=== PATIENT | female | born 1945 | race Asian ===

== ENCOUNTER 2024-04-14 01:57 | Inpatient (IN) | payer MEDICARE, OTHER ==
[~2024-04-14] VITALS: Ht 162.6 cm; Wt 63.5 kg
[2024-04-14] MEDS ORDERED: DOCU100T2 PO (02:21)
[2024-04-14] MEDS ORDERED: AMLO10TA59 PO (02:21)
[2024-04-14] MEDS ORDERED: MULT-1045 PO (02:21)
[2024-04-14] MEDS ORDERED: LEVO25TA9 PO (02:21)
[2024-04-14] MEDS ORDERED: OMEG-131 PO (02:21)
[2024-04-14] MEDS ORDERED: APIX5TAB PO (02:21)
[2024-04-14] MEDS ORDERED: ATOR20TA PO (02:21)
[2024-04-14] MEDS ORDERED: VALS80TA2 PO (02:21)
[2024-04-14] MEDS ORDERED: ACET325T53 PO (02:21)
[2024-04-14] MEDS ORDERED: GABA100C PO (02:21)
[2024-04-14] MEDS ORDERED: MIRT-73 PO (02:21)
[2024-04-14] MEDS ORDERED: DIVA250T4 PO (02:21)
[2024-04-14 03:06] LABS: BASOPHILS % (AUTO) 0.6 % (0.0-2.0); EOSINOPHILS % (AUTO) 0.2 % (0.0-7.0); HEMATOCRIT 36.3 % (31.2-41.9); HEMOGLOBIN 12.4 g/dL (10.9-14.3); LYMPHOCYTES % (AUTO) 15.3 % (20.5-51.5); MEAN CORPUSCULAR HEMOGLOBIN 30.7 uug (24.7-32.8); MEAN CORPUSCULAR HGB CONC 34 g/dL (32.3-35.6); MEAN CORPUSCULAR VOLUME 89.8 fL (75.5-95.3); MONOCYTES # (AUTO) 0.5 K/uL (0.1-1.30); MONOCYTES % (AUTO) 8.3 % (0.0-11.0); NEUTROPHILS # (AUTO) 4.7 K/uL (1.8-8.9); NEUTROPHILS % (AUTO) 75.6 % (38.5-71.5); PLATELET COUNT (AUTO) 152 K/uL (179-408); RED BLOOD CELL COUNT(AUTO) 4.04 MIL/uL (3.63-4.92); RED CELL DISTRIBUTION WIDTH 13.6 % (12.3-17.7); WHITE BLOOD COUNT (AUTO) 6.2 K/uL (3.8-11.8)
[2024-04-14 03:34] LABS: AMMONIA 19 umol/L (11-32)
[2024-04-14 03:37] LABS: DIFFERENTIAL COMMENT 1
[2024-04-14 03:41] LABS: *BILIRUBIN,URIN NEGATIVE (NEGATIVE); *BLOOD, URINE NEGATIVE (NEGATIVE); *CLARITY,URINE CLEAR (CLEAR); *COLOR,URINE YELLOW (YELLOW); *KETONES,URINE NEGATIVE (NEGATIVE); *PROTEIN,URINE NEGATIVE (NEGATIVE); *UROBILINOGEN,URINE 0.2 E.U./dl (NORMAL); LEUKOCYTE ESTERASE ,URINE NEGATIVE (NEGATIVE); NITRITE, URINE NEGATIVE (NEGATIVE); PH,URINE 5.5 (5.0-8.0); UGLUCOSE NEGATIVE (NEGATIVE)
[2024-04-14 04:57] LABS: THYROID STIMULATING HORMONE 1.238 mIU/mL (0.358-3.740)
[2024-04-14 04:58] LABS: ALANINE AMINOTRANSFERASE 200 U/L (14-59); ALBUMIN 3.2 g/dL (3.4-5.0); ALKALINE PHOSPHATASE 167 U/L (50-136); ASPARTATE AMINOTRANSFERASE 159 U/L (15-37); BILIRUBIN,DIRECT 0.1 mg/dL (0.0-0.2); BILIRUBIN,TOTAL 0.4 mg/dL (0.2-1.0); CALCIUM 10.2 mg/dL (8.5-10.1); CARBON DIOXIDE 27 mmol/L (21-32); CHLORIDE 113 mmol/L (98-107); CREATININE 1.3 mg/dL (0.6-1.3); GLUCOSE 158 mg/dL (74-106); POTASSIUM 4.8 mmol/L (3.5-5.1); SODIUM SERUM 153 mmol/L (136-145); UREA NITROGEN, BLOOD 48 mg/dL (7-18)
[2024-04-14] MEDS ORDERED: IV D5W-0.45% NS 1000 ML BAG IV ONE (06:30)
[2024-04-14] MEDS: IV 1/2NS 1000 ML 1,000 ML IV PRN ×2 (06:39→21:33)
[2024-04-14] MEDS ORDERED: ACETAMINOPHEN 325 MG TABLET-SA PATIENTS-PAIN ONLY PO PRN (10:30)
[2024-04-14] MEDS ORDERED: ONDANSETRON 4 MG/2 ML VIAL IV PRN (10:30)
[2024-04-14] MEDS ORDERED: GABAPENTIN 100 MG CAPSULE ONE ×2 (10:33→11:23)
[2024-04-14] MEDS ORDERED: ACETAMINOPHEN 325 MG TABLET PO PRN (10:45)
[2024-04-14] MEDS: GABAPENTIN 100 MG CAPSULE PO SCH (11:27)
[2024-04-14] MEDS: APIXABAN 5 MG TABLET PO SCH (11:30)
[2024-04-14 17:00] VITALS: BP 147/63; TEMP 97.2; O2SAT 97
[2024-04-14] MEDS ORDERED: MIRTAZAPINE 15 MG TAB.RAPDIS PO SCH (18:00)
[2024-04-14] MEDS ORDERED: MIRT-121 PO (18:25)
[2024-04-14 19:00] VITALS: BP 103/55; TEMP 99.5; O2SAT 94
[2024-04-14] MEDS: DOCUSATE SODIUM 100 MG CAPSULE PO SCH (20:47)
[2024-04-14] MEDS: DIVALPROEX 250 MG TABLET.DR PO SCH (20:47)
[2024-04-15] VITALS: BP 129/68; TEMP 99.2; O2SAT 94
[2024-04-15 04:00] VITALS: BP 118/58; TEMP 98.8; O2SAT 95
[2024-04-15] MEDS: LEVOTHYROXINE SODIUM 25 MCG TABLET PO SCH (06:12)
[2024-04-15] MEDS: PANTOPRAZOLE SODIUM 40 MG TABLET.DR PO SCH (06:12)
[2024-04-15 06:59] LABS: BASOPHILS % (AUTO) 0.5 % (0.0-2.0); EOSINOPHILS % (AUTO) 0.5 % (0.0-7.0); HEMATOCRIT 35.4 % (31.2-41.9); HEMOGLOBIN 12.4 g/dL (10.9-14.3); LYMPHOCYTES # (AUTO) 1.3 K/uL (0.8-4.8); LYMPHOCYTES % (AUTO) 23.4 % (20.5-51.5); MEAN CORPUSCULAR HEMOGLOBIN 31.3 uug (24.7-32.8); MEAN CORPUSCULAR HGB CONC 35 g/dL (32.3-35.6); MEAN CORPUSCULAR VOLUME 89.4 fL (75.5-95.3); MONOCYTES # (AUTO) 0.8 K/uL (0.1-1.30); MONOCYTES % (AUTO) 14.6 % (0.0-11.0); NEUTROPHILS # (AUTO) 3.5 K/uL (1.8-8.9); PLATELET COUNT (AUTO) 124 K/uL (179-408); RED BLOOD CELL COUNT(AUTO) 3.97 MIL/uL (3.63-4.92); WHITE BLOOD COUNT (AUTO) 5.8 K/uL (3.8-11.8)
[2024-04-15 07:13] LABS: ALANINE AMINOTRANSFERASE 99 U/L (14-59); ALBUMIN 2.8 g/dL (3.4-5.0); ALKALINE PHOSPHATASE 129 U/L (50-136); ASPARTATE AMINOTRANSFERASE 52 U/L (15-37); BILIRUBIN,TOTAL 0.3 mg/dL (0.2-1.0); CALCIUM 8.7 mg/dL (8.5-10.1); CARBON DIOXIDE 27 mmol/L (21-32); CHLORIDE 101 mmol/L (98-107); CREATINE KINASE, TOTAL 210 U/L (26-192); CREATININE 0.6 mg/dL (0.6-1.3); GLUCOSE 86 mg/dL (74-106); PHOSPHOROUS 3.4 mg/dL (2.5-4.9); POTASSIUM 4.2 mmol/L (3.5-5.1); SODIUM SERUM 137 mmol/L (136-145); TOTAL PROTEIN, SERUM 6.5 g/dL (6.4-8.2); UREA NITROGEN, BLOOD 15 mg/dL (7-18)
[2024-04-15 07:17] LABS: DIFFERENTIAL COMMENT 1
[2024-04-15 07:33] VITALS: BP 134/55; TEMP 98.5; O2SAT 93
[2024-04-15] MEDS: MULTIVITAMINS,THERAPEUTIC TABLET PO SCH (08:21)
[2024-04-15] MEDS ORDERED: Medication Not On Formulary EA (Docusate Sodium 1 TAB) PO SCH (09:00)
[2024-04-15] MEDS ORDERED: Medication Not On Formulary EA (Multivitamin (Multi-Vitamin Daily) 1 TAB) PO SCH (09:00)
[2024-04-15 11:33] VITALS: BP 127/55; TEMP 99.7; O2SAT 94
[2024-04-15 15:41] VITALS: BP 124/47; TEMP 98.4; O2SAT 95
[2024-04-15 16:19] LABS: CHOLESTEROL 197 mg/dL (<200); HDL CHOLESTEROL 60 mg/dL (40-60); TRIGLYCERIDES 77 MG/DL (30-150)
[2024-04-15] MEDS: MIRTAZAPINE 15 MG TABLET PO SCH (17:13)
[2024-04-15 20:41] VITALS: BP 145/66; TEMP 98.6; O2SAT 95
[2024-04-16 05:55] VITALS: BP 162/77; TEMP 98.7; O2SAT 93
[2024-04-16 07:11] LABS: PTH, INTACT 13 pg/mL (15-65)
[2024-04-16 11:22] VITALS: BP 132/49; TEMP 98.1; O2SAT 93
[2024-04-16 15:20] VITALS: BP 128/55; TEMP 98.7; O2SAT 95
[2024-04-16 20:17] VITALS: BP 155/59; TEMP 96.9; O2SAT 97
[2024-04-17 05:11] VITALS: BP 159/94; TEMP 96.7; O2SAT 98
[2024-04-17 06:06] LABS: ALBUMIN 3.1 g/dL (2.9-4.4); ALPHA-1-GLOBULIN 0.2 g/dL (0.0-0.4); ALPHA-2-GLOBULIN 0.8 g/dL (0.4-1.0); BETA GLOBULIN 0.9 g/dL (0.7-1.3); GAMMA GLOBULIN 1.2 g/dL (0.4-1.8); GLOBULIN, TOTAL 3.1 g/dL (2.2-3.9); M-SPIKE Not Observed g/dL (Not Observed); PROTEIN, TOTAL 6.2 g/dL (6.0-8.5)
[2024-04-17 07:13] LABS: BASOPHILS % (AUTO) 0.3 % (0.0-2.0); EOSINOPHILS # (AUTO) 0.1 K/uL (0.0-0.7); EOSINOPHILS % (AUTO) 2.8 % (0.0-7.0); HEMATOCRIT 36.7 % (31.2-41.9); HEMOGLOBIN 12.7 g/dL (10.9-14.3); LYMPHOCYTES # (AUTO) 1.6 K/uL (0.8-4.8); LYMPHOCYTES % (AUTO) 42.5 % (20.5-51.5); MEAN CORPUSCULAR HEMOGLOBIN 31.2 uug (24.7-32.8); MEAN CORPUSCULAR HGB CONC 35 g/dL (32.3-35.6); MEAN CORPUSCULAR VOLUME 89.8 fL (75.5-95.3); MONOCYTES # (AUTO) 0.4 K/uL (0.1-1.30); MONOCYTES % (AUTO) 10.4 % (0.0-11.0); NEUTROPHILS # (AUTO) 1.7 K/uL (1.8-8.9); PLATELET COUNT (AUTO) 138 K/uL (179-408); RED BLOOD CELL COUNT(AUTO) 4.08 MIL/uL (3.63-4.92); RED CELL DISTRIBUTION WIDTH 13.3 % (12.3-17.7); WHITE BLOOD COUNT (AUTO) 3.8 K/uL (3.8-11.8)
[2024-04-17 07:37] LABS: DIFFERENTIAL COMMENT 1
[2024-04-17 08:00] LABS: ALANINE AMINOTRANSFERASE 55 U/L (14-59); ALBUMIN 2.9 g/dL (3.4-5.0); ALKALINE PHOSPHATASE 120 U/L (50-136); ASPARTATE AMINOTRANSFERASE 31 U/L (15-37); BILIRUBIN,TOTAL 0.3 mg/dL (0.2-1.0); CALCIUM 8.7 mg/dL (8.5-10.1); CARBON DIOXIDE 27 mmol/L (21-32); CHLORIDE 108 mmol/L (98-107); CREATININE 0.5 mg/dL (0.6-1.3); GLUCOSE 85 mg/dL (74-106); MAGNESIUM 2.1 mg/dL (1.8-2.4); PHOSPHOROUS 2.8 mg/dL (2.5-4.9); SODIUM SERUM 144 mmol/L (136-145); TOTAL PROTEIN, SERUM 6.8 g/dL (6.4-8.2); UREA NITROGEN, BLOOD 10 mg/dL (7-18)
[2024-04-17 12:00] VITALS: BP 128/55; TEMP 98.7; O2SAT 95
[2024-04-17] MEDS ORDERED: DOCU-141 PO (14:14)
[2024-04-17] MEDS ORDERED: ATOR20TA PO (14:14)
[2024-04-17] MEDS ORDERED: PANT40TA49 PO (14:14)
[2024-04-17 16:00] VITALS: BP 145/66; TEMP 98.6; O2SAT 95
[2024-04-17 20:58] VITALS: BP 139/68; TEMP 98.5
== END 2024-04-17 15:45 | DRG 682 ==
LOC: ER 02:12 → TRANSITION 07:59 → TELE3 17:08 → MEDSURG3 04-15 19:03
PROVIDERS: ADMIT Internal Medicine; ATTEND Internal Medicine
DX: N17.0 Acute kidney failure with tubular necrosis (principal); G93.41 Metabolic encephalopathy; E87.0 Hyperosmolality and hypernatremia; E44.0 Moderate protein-calorie malnutrition; F01.53 Vascular dementia, unspecified severity, with mood disturbance; J90 Pleural effusion, not elsewhere classified; E86.0 Dehydration; R79.89 Other specified abnormal findings of blood chemistry; R94.5 Abnormal results of liver function studies; K76.0 Fatty (change of) liver, not elsewhere classified; Z86.718 Personal history of other venous thrombosis and embolism; Z79.899 Other long term (current) drug therapy; Z79.890 Hormone replacement therapy; K76.89 Other specified diseases of liver; E86.1 Hypovolemia; E88.09 Other disorders of plasma-protein metabolism, not elsewhere classified; K21.9 Gastro-esophageal reflux disease without esophagitis; K59.00 Constipation, unspecified; E78.5 Hyperlipidemia, unspecified; I11.9 Hypertensive heart disease without heart failure; E03.9 Hypothyroidism, unspecified; F25.9 Schizoaffective disorder, unspecified; E83.52 Hypercalcemia; R62.7 Adult failure to thrive; Z79.01 Long term (current) use of anticoagulants; G62.9 Polyneuropathy, unspecified; R13.10 Dysphagia, unspecified
CPT/HCPCS: 36415; 70450; 71045; 76700; 83605; 83735; 83970; 84100; 84155; 84165; 84443; 84484; 85025; 85730; 87040; A4606; A4663; C1758; G0378; J3490